=== PATIENT | male | born 1955 | race Caucasian/White ===

== ENCOUNTER → 2017-11-12 | Outpatient (CLI) | payer BC, OTHER ==
--- NOTE | 2017-11-12 16:39 | MRI ---
EXAM DESCRIPTION: Shoulder,Left: MRI. CLINICAL HISTORY: LEFT SHOULDER PAIN COMPARISON: None. TECHNIQUE: Multiplanar, high-field MRI, multiple sequences, without contrast: Left shoulder. FINDINGS: Abnormal signal in the left distal supraspinatus undersurface insertion in the mid fibers. Abnormal longitudinal fluid signal in the anterior aspect of the tendon. Intermediate signal in the posterior tendon fibers. Also abnormal fluid signal in the bursal surface of the anterior fibers. Fluid signal also on the undersurface of the insertion of the infraspinatus tendon distally. Signal in the distal subscapularis tendon. Hypertrophic bone formation on the lesser tuberosity. Normal signal in the teres minor tendon. Fatty signal in the muscles of the supraspinatus more than the infraspinatus tendon. Erosions on the anterior and mid aspect of the greater tuberosity. Heterogeneous marrow signal in the humeral head. Enlarged left AC joint capsule with large marginal spurs directed inferiorly impressing on the supraspinatus musculotendinous junction with flattening of the coracoacromial arch. The capsule is also enlarged in the superior direction. Subchondral cyst in the distal clavicle. No downsloping of the lateral acromion but type 2 curvature laterally. Coracoid ligaments are intact. Effusion in the subcoracoid bursa. Effusion in the glenohumeral joint. Chondromalacia in the glenoid fossa and humeral head. No loose bodies. Increased signal in the mid and posterior aspects of the superior glenoid labrum. Mid-anterior location of the bicipital labral anchor with intermediate signal. Long head biceps tendon within the bicipital groove. IMPRESSION: 1. Almost full-thickness tear of the distal anterior fibers of the supraspinatus tendon with partial-thickness tear of the undersurface insertion, slightly more posterior fibers. Minimal effusion subacromial-subdeltoid bursa. Grade 2 atrophy supraspinatus muscle. 2. Partial-thickness undersurface insertion tear of the infraspinatus tendon and degeneration of the distal tendon. 3. Marked arthrosis AC joint with flattening of the coracoacromial arch and impingement of the musculotendinous junction of the supraspinatus. Also type II curvature of the lateral acromion. Subcoracoid bursitis. 4. Attenuation and partial tear of the posterior aspect of the supraspinatus tendon. Degeneration of the bicipital labral anchor. Joint effusion but no loose bodies. Chondromalacia humeral head but no osteochondral lesion. Electronically signed by: Kennedy Martinez MD 11/12/2017 4:38 PM [employer] [employer]
== END | disposition home or self-care (01) ==
LOC: MRI 09:49
PROVIDERS: ATTEND Family Medicine
DX: M25.519 Pain in unspecified shoulder (principal); R21 Rash and other nonspecific skin eruption; Z12.5 Encounter for screening for malignant neoplasm of prostate

== ENCOUNTER → 2017-11-14 | Outpatient (CLI) | payer BC | END | disposition home or self-care (01) | LOC: GMAL 17:11 | PROVIDERS: ATTEND Family Medicine | DX: Z12.5 Encounter for screening for malignant neoplasm of prostate (principal); R21 Rash and other nonspecific skin eruption ==

== ENCOUNTER → 2017-11-28 | Outpatient (CLI) | payer BC | LOC: LAB.O 10:00 | PROVIDERS: ATTEND Orthopaedic Surgery | DX: Z01.818 Encounter for other preprocedural examination (principal) ==

== ENCOUNTER → 2017-12-03 | Outpatient (CLI) | payer BC | LOC: GMAM 18:31 | PROVIDERS: ATTEND Family Medicine | DX: D63.1 Anemia in chronic kidney disease (principal); R31.21 Asymptomatic microscopic hematuria ==

== ENCOUNTER 2017-12-10 05:50 | Day surgery (SDC) | payer BC ==
--- NOTE | 2017-12-09 10:05 | HP ---
CHIEF COMPLAINT: Left shoulder pain. HISTORY OF PRESENT ILLNESS: José is a 62-year-old male with a history of pain in the left shoulder. It was nontraumatic in onset. He has had rotator cuff repair in the past and this new pain has been going on for several years. He has said it started in the shoulder. He denies any radiation of pain or neurologic symptoms. MRI did reveal a tear in the rotator cuff. Because of the tear in the rotator cuff, we have discussed options. After discussing the risks, benefits and alternatives to that, the patient has given informed consent. PAST SURGICAL HISTORY: 1. Rotator cuff repair. 2. Cardiac stent placement. 3. Lumbar fusion. MEDICATIONS: 1. Aspirin. 2. Celebrex. 3. Hydrocodone. 4. Valsartan. 5. Metoprolol. 6. Clopidogrel. 7. Pravastatin. ALLERGIES: NO KNOWN DRUG ALLERGIES. CODE STATUS: Full code. IMMUNIZATIONS: Up to date. SOCIAL HISTORY: The patient does not drink or use any illicit drugs. He does smoke. FAMILY HISTORY: None pertinent to today's complaint. REVIEW OF SYSTEMS: Negative except as indicated in the History of Present Illness. PHYSICAL EXAMINATION: VITAL SIGNS: Blood pressure 144/65. Pulse 66. Height 5'8". Weight 175. MENTAL STATUS: The patient is awake, alert, and is able to give a good history and participate in the physical. The patient is oriented to person, place and time. SKIN: Normal tone and turgor. MUSCULOSKELETAL: The left upper extremity maintains full range of motion. However, he has pain at about 90 degrees in abduction as well as forward flexion. He has internal rotation to about L3 to L4. He has a negative belly press maneuver. He has pain with internal and external rotation during forward flexion. Sensation is intact. He is very tender in the subacromial and acromioclavicular spaces. IMAGING: MRI does show full thickness tearing at the supraspinatus and partial thickness tearing at the infraspinatus. ASSESSMENT: 1. Rotator cuff syndrome. PLAN: The plan at this point is for rotator cuff repair. We have discussed the risks, benefits, and alternatives to that and the patient has given informed consent. #[id number] [facility]
[2017-12-10] MEDS ORDERED: fentaNYL CITRATE INJ 50 MCG/ML AMP ONE (06:08)
[2017-12-10] MEDS ORDERED: ROCURONIUM BROMIDE 10 MG/ML VIAL ONE (06:09)
[2017-12-10] MEDS ORDERED: LIDOCAINE 2 % GEL 5 ML TUBE TOP ONE (06:09)
[2017-12-10] MEDS ORDERED: SODIUM CHL 0.9% 100ML MINI-BAG 100 ML IVPB ONE (06:15)
[2017-12-10] MEDS: ceFAZolin SODIUM 1 GM VIAL ONE ×2 (09:51→11:10)
[2017-12-10] MEDS ORDERED: LIDOCAINE 1% 10 ML VIAL INJ ONE (10:00)
[2017-12-10] MEDS ORDERED: DEXAMETHASONE INJ 10 MG/ML VIAL IV ONE (10:00)
[2017-12-10] MEDS ORDERED: PROPOFOL 200 MG/20 ML VIAL IV ONE (10:00)
[2017-12-10] MEDS ORDERED: ATROPINE SULFATE INJ (MDV) 0.4 MG/ML 20ML VIAL IV ONE (10:00)
[2017-12-10] MEDS ORDERED: NEOSTIGMINE METHYLSULFATE 1 MG/ML ML IV ONE (10:00)
[2017-12-10] MEDS ORDERED: METOCLOPRAMIDE HCL INJ 10 MG/2 ML VIAL IV ONE (10:00)
[2017-12-10] MEDS ORDERED: ePHEDrine SULF 50 MG/ML IV ONE (10:00)
[2017-12-10] MEDS: LIDOCAINE 1% W/ EPINEPHRINE 20 ML VIAL INJ ONE (10:26)
[2017-12-10] MEDS: SODIUM CHLORIDE 0.9% 1,000 ML BAG IVS ONE (10:26)
[2017-12-10] MEDS: VANCOMYCIN HCL INJ 1,000 MG VIAL IVPB ONE (11:10)
[2017-12-10] MEDS: BUPIVACAINE 0.25% W/EPI 50 ML VIAL INJ ONE (11:28)
[2017-12-10] MEDS: LACTATED RINGERS 1,000 ML ONE (12:31)
[2017-12-10 13:38] VITALS: BP 133/49; TEMP 98; O2SAT 95
--- NOTE | 2017-12-11 11:00 | OP ---
DATE OF PROCEDURE: 12/10/17 PREOPERATIVE DIAGNOSIS: 1. Left rotator cuff tear. POSTOPERATIVE DIAGNOSIS: 1. Left rotator cuff tear. PROCEDURE: 1. Rotator cuff repair. SURGEON: Frank Rosenthal MD. LEAD CARPENTER: Kennedy Watson CST, SA-C. ANESTHESIA: General. COMPLICATIONS: None. FINDINGS: Rotator cuff tear measuring approximately 1 to 1.5 cm of the supraspinatus. INDICATION: Mr. Butler has a history of severe shoulder pain. The shoulder pain has been refractory to conservative measures. Because of the refractory nature of the pain, he has requested operative intervention. After discussing the risks, benefits and alternatives to that, the patient has given informed consent for that. PROCEDURE: The patient was brought to the Operating Room and placed in the supine position. General anesthesia was induced and the patient was transitioned into the beach chair position. The arm and shoulder were sterilely prepped and draped. Following prepping and draping, an incision was made at the lateral border of the acromion. Full thickness skin flaps were developed. Following that, a split was made between the anterior and middle heads of the deltoid. Following the split, a complete bursectomy was performed. The rotator cuff was identified and the tear margin was debrided. Following debridement of the margin, a double-loaded suture anchor was used to reapproximate the supraspinatus in an anatomic position. Once that was performed, the shoulder was taken through a range of motion and the cuff was found to be stable without undue tension. The wound was very thoroughly irrigated and the deltoid was reapproximated. Following that, the acromioclavicular joint was identified and periosteal flap was elevated. The distal 0.5 cm was resected. Care was taken to remove all bony debris and osteophytes. It wound was thoroughly irrigated and the periosteum was reapproximated. The wound again was thoroughly irrigated and reapproximated with Nylon suture. Sterile dressings were placed. The patient was placed in a sling. The patient was awoken from anesthesia and taken to Recovery. POSTOPERATIVE INSTRUCTIONS: He will remain in the sling and be restricted from range of motion. He will followup with us in two days. I have given explicit instructions on appropriate range of motion and lack thereof. #[id number] [facility]
== END 2017-12-10 13:25 | disposition home or self-care (01) ==
LOC: AMB 05:50
PROVIDERS: ATTEND Orthopaedic Surgery
DX: M75.102 Unspecified rotator cuff tear or rupture of left shoulder, not specified as traumatic (principal); M75.42 Impingement syndrome of left shoulder; F17.200 Nicotine dependence, unspecified, uncomplicated; I25.10 Atherosclerotic heart disease of native coronary artery without angina pectoris; I12.9 Hypertensive chronic kidney disease with stage 1 through stage 4 chronic kidney disease, or unspecified chronic kidney disease; N18.9 Chronic kidney disease, unspecified; D64.9 Anemia, unspecified; I25.2 Old myocardial infarction; Z95.5 Presence of coronary angioplasty implant and graft; Z79.82 Long term (current) use of aspirin; Z79.899 Other long term (current) drug therapy
CPT/HCPCS: 01610; 23412; J0690; J1100; J2710; J2765; J3010; J3370; J3490; J7030; J7050; J7120

== ENCOUNTER → 2018-02-19 | Outpatient (CLI) | payer BC | LOC: GMAM 14:14 | PROVIDERS: ATTEND Family Medicine | DX: M70.22 Olecranon bursitis, left elbow (principal) ==

== ENCOUNTER → 2018-03-06 | Outpatient (CLI) | payer BC ==
--- NOTE | 2018-03-06 15:44 | RAD ---
EXAM DESCRIPTION: Elbow,Left 3 Views CLINICAL HISTORY: PAIN IN LEFT ELBOW COMPARISON: None Available. TECHNIQUE: AP, Lateral, and Oblique FINDINGS: Three-view left elbow shows no fracture or dislocation. There is no destructive bone lesion. Small bone island in the proximal radius. Advanced degenerative changes are seen with spurring at the ulnar trochlear joint and at the olecranon. No displacement of distal humeral fat pads to suggest joint effusion. There is no radiopaque foreign body. IMPRESSION: Degenerative changes as described. Electronically signed by: Hiren Linton MD 03/06/2018 3:43 PM CDT
== END ==
LOC: RAD 08:17
PROVIDERS: ATTEND Orthopaedic Surgery
DX: M25.522 Pain in left elbow (principal)

== ENCOUNTER → 2018-04-03 | Outpatient (CLI) | payer BC | LOC: RESP 10:44 | PROVIDERS: ATTEND Orthopaedic Surgery | DX: Z01.818 Encounter for other preprocedural examination (principal) ==

== ENCOUNTER 2018-04-15 05:56 | Day surgery (SDC) | payer BC ==
[~2018-04-15 05:56] MED LIST: SODIUM CHL 0.9% 100ML MINI-BAG 100 ML IVPB ONE
[2018-04-15] MEDS ORDERED: fentaNYL CITRATE INJ 50 MCG/ML AMP ONE (06:28)
[2018-04-15] MEDS ORDERED: LIDOCAINE 2 % GEL 5 ML TUBE TOP ONE (06:29)
[2018-04-15] MEDS ORDERED: MIDAZOLAM INJ 5 MG/5 ML VIAL ONE (06:29)
[2018-04-15] MEDS: LACTATED RINGERS 1,000 ML ONE (06:30)
[2018-04-15] MEDS: ceFAZolin SODIUM 1 GM VIAL ONE ×2 (07:01→07:48)
[2018-04-15] MEDS: BUPIVACAINE 0.25% W/EPI 50 ML VIAL INJ ONE (07:25)
[2018-04-15] MEDS: VANCOMYCIN HCL INJ 1,000 MG VIAL IVPB ONE (07:49)
--- NOTE | 2018-04-15 09:52 | OP ---
DATE OF PROCEDURE: 04/15/18 PREOPERATIVE DIAGNOSIS: 1. Left olecranon bursitis. POSTOPERATIVE DIAGNOSIS: 1. Left olecranon bursitis. PROCEDURE: 1. Bursectomy. SURGEON: Frank Rosenthal MD. DIRECTOR OF INSTITUTIONAL GIVING: Kennedy Watson CST, SA-C. ANESTHESIA: General anesthesia.c COMPLICATIONS: None FINDINGS: Bursitis with no evidence of infection and a large amount of fibrinous tissue. INDICATION: Mr. Butler has a history of swelling which has been intermittent. He has had the fluid from his elbow drained on a couple of occasions. Because of the ongoing presence of repeat accumulation, he has requested operative intervention. After discussing the risks, benefits and alternatives to that inclusive of the possibility of recurrence, he gave informed consent for bursectomy. PROCEDURE: The patient was brought to the Operating Room and placed in supine position. General anesthesia was induced and the patient's arm was sterilely prepped and draped. An incision was made directly overlie the olecranon. Following the incision, blunt dissection was carried down to the olecranon bursa and it was removed piecemeal. The area was probed and examined and to ensure no extension or any the presence of any tract. Once the area had been thoroughly debrided, it was thoroughly irrigated and closure was performed. Sterile dressings were placed. The patient was awoken from anesthesia and taken to Recovery. POSTOPERATIVE INSTRUCTIONS: He will be encouraged to do range of motion of the digits. He will followup with us in two days. #[id number] [facility]
[2018-04-15 10:28] VITALS: BP 132/65; TEMP 97; O2SAT 98
== END 2018-04-15 09:45 | disposition home or self-care (01) ==
LOC: AMB 05:56
PROVIDERS: ATTEND Orthopaedic Surgery
DX: M71.522 Other bursitis, not elsewhere classified, left elbow (principal); I10 Essential (primary) hypertension; I25.10 Atherosclerotic heart disease of native coronary artery without angina pectoris; F17.200 Nicotine dependence, unspecified, uncomplicated; J44.9 Chronic obstructive pulmonary disease, unspecified; R00.1 Bradycardia, unspecified; I25.2 Old myocardial infarction; Z95.5 Presence of coronary angioplasty implant and graft; Z79.02 Long term (current) use of antithrombotics/antiplatelets; Z79.82 Long term (current) use of aspirin; Z79.899 Other long term (current) drug therapy
CPT/HCPCS: 01710; 24105; J0690; J2250; J3010; J3370; J7050; J7120

== ENCOUNTER → 2019-08-18 | Outpatient (CLI) | payer BC ==
--- NOTE | 2019-08-18 13:31 | CT ---
EXAM DESCRIPTION: Chest w/Contrast CLINICAL HISTORY: 64 years, Male, SOLITARY PULMONARY NODULE COMPARISON: None TECHNIQUE: Thin-section noncontrast axial CT images are obtained according to our protocol. Reconstructed MPR images are created and reviewed as well. FINDINGS: Lungs: Consolidation of the lateral segment right middle lobe is seen. The lumen of the bronchus appears opacified or occluded (axial image 72, series 4 and coronal images 66 and 67, series 602). Correlate with bronchoscopic findings. No discernible hilar mass or adenopathy. Findings are consistent with pneumonia. Follow-up after therapy to ensure complete clearance. No worrisome peripheral pulmonary mass or nodule. Tiny granuloma in the left apex measures 3.5 mm. Two additional tiny adjacent 1 mm nodules consistent with granulomas. No imaging follow-up is recommended for these findings. Moderate centrilobular emphysematous changes in the upper lobes bilaterally. Mediastinum: Lymph nodes are normal in size. Mildly prominent right paraesophageal node near the thoracic inlet measures 7 mm short axis dimension. Subcarinal node measures 7.5 mm short axis dimension. Other nodes are smaller. Normal vascular contours. Heart size is normal with no pericardial effusion. Chest wall/axilla: No mass or adenopathy. Lower neck/supraclavicular: No mass or adenopathy. Normal thyroid gland. Upper abdomen: Unremarkable upper abdominal viscera. Coronal and sagittal reformatted images confirm the findings. IMPRESSION: Consolidation of the lateral segment right middle lobe with approximately opacified or occluded segmental bronchus. See above. Few incidental granulomas in the left apex. Moderate centrilobular emphysematous changes in the upper lobes. This exam was performed according to our departmental dose-optimization program, which includes automated exposure control, adjustment of the mA and/or kV according to patient size and/or use of iterative reconstruction technique. Total DLP equals 317.07 mGycm. Electronically signed by: Hiren Linton MD 08/18/2019 1:29 PM CDT
== END ==
LOC: CT 12:15
PROVIDERS: ATTEND Physician Assistant
DX: R91.1 Solitary pulmonary nodule (principal); R91.8 Other nonspecific abnormal finding of lung field; J43.9 Emphysema, unspecified; R07.82 Intercostal pain

== ENCOUNTER → 2019-11-19 | Outpatient (CLI) | payer BC ==
--- NOTE | 2019-11-19 13:12 | CT ---
EXAM DESCRIPTION: Chest w/o Contrast CLINICAL HISTORY: 64 years Male, OTHER DISORDERS OF LUNG TECHNIQUE: This exam was performed according to our departmental dose-optimization program, which includes automated exposure control, adjustment of the mA and/or kV according to patient size and/or use of iterative reconstruction technique. COMPARISON: 08/18/2019 FINDINGS: The thyroid gland is unremarkable. No axillary adenopathy. Atherosclerotic plaque in the normal caliber thoracic aorta. Coronary artery calcifications. No pericardial effusion. No evidence of acute process in the visualized upper abdomen. Cardiomegaly. No mediastinal adenopathy. Centrilobular emphysema. No pneumothorax. No pleural effusion. Small scattered calcified granulomas. No new pulmonary nodule. Improved although some persistent right middle lobe consolidative airspace disease. The right middle lobe segmental bronchus is persistently occluded. No acute or suspicious osseous abnormality. Scattered degenerative changes present. IMPRESSION: Improved although persistent consolidative right middle lobe airspace disease which may reflect resolving pneumonia. Recommend repeat chest CT in three months. Electronically signed by: Jay Betts MD 11/19/2019 1:[address] [facility]
== END ==
LOC: CT 09:50
PROVIDERS: ATTEND Internal Medicine
DX: J98.4 Other disorders of lung (principal)

== ENCOUNTER → 2020-07-05 | Outpatient (CLI) | payer BC, MEDICARE ==
--- NOTE | 2020-07-05 15:46 | MRI ---
Study: MRI of the Right Shoulder. Indication: PAIN IN RIGHT SHOULDER Technique: Multiplanar, multi sequence MRI of the right shoulder was obtained without intravenous contrast. Comparison: None Findings: Severe AC joint osteoarthritis. Type II acromion with mild lateral downsloping. Trace subacromial/subdeltoid bursal fluid. High-grade supraspinatus and infraspinatus tendinosis with irregular intermediate to high grade interstitial tearing throughout the insertional and critical zone fibers of both tendons. Changes most pronounced at the anterior two thirds supraspinatus tendon insertion as well as the anterior two thirds infraspinatus critical zone. Mild ganglion formation tracking along the infraspinatus myotendinous junction. No full-thickness tear or tendon retraction. High grade subscapularis tendinosis with scattered interstitial fissuring. Mild atrophy and grade 1 fatty infiltration rotator cuff musculature. Long head biceps tendinosis with partial medial subluxation onto the lesser tuberosity. No rupture. Circumferential labral truncation and degeneration. Mild glenohumeral joint osteoarthritis. Tiny joint effusion. Thickening and edema inferior glenohumeral ligament which can be seen with adhesive capsulitis. Impression: High-grade supraspinatus and infraspinatus tendinosis with irregular intermediate to high grade interstitial tearing throughout both tendons. High-grade subscapularis tendinosis with scattered interstitial fissuring. Mild atrophy and grade 1 fatty infiltration rotator cuff musculature. Long head biceps tendinosis with partial medial subluxation. Circumferential labral truncation and degeneration. Mild glenohumeral joint osteoarthritis. Adhesive capsulitis. Severe AC joint osteoarthritis. Electronically signed by: Kleber Hawkins MD 07/05/2020 3:44 PM CDT
== END ==
LOC: MRI 08:55
PROVIDERS: ATTEND Family Medicine
DX: M75.81 Other shoulder lesions, right shoulder (principal); M75.111 Incomplete rotator cuff tear or rupture of right shoulder, not specified as traumatic; M19.011 Primary osteoarthritis, right shoulder; M75.21 Bicipital tendinitis, right shoulder; S43.081A Other subluxation of right shoulder joint, initial encounter; M75.01 Adhesive capsulitis of right shoulder; M62.521 Muscle wasting and atrophy, not elsewhere classified, right upper arm; M62.9 Disorder of muscle, unspecified

== ENCOUNTER → 2020-07-13 | Outpatient (CLI) | payer MEDICARE ==
--- NOTE | 2020-07-13 16:07 | CT ---
EXAM DESCRIPTION: Chest w/o Contrast CLINICAL HISTORY: 65 years, Male, OTHER NONSPECIFIC ABNORMAL FINDING OF LUNG FLUID COMPARISON: Previous CT chest November 19, [address] chest August 18, 2019 TECHNIQUE: Thin-section noncontrast axial CT images are obtained according to our protocol. Reconstructed MPR images are created and reviewed as well. FINDINGS: Lungs: Focal consolidating infiltrate is seen in the right lung extending peripherally from the right pulmonary hilum anterior to the major fissure and below the minor fissure (lateral segment right middle lobe). Air bronchograms are seen in the area. The area of abnormality measures approximately 5.4 x 1.7 cm compared to August 18, 2019 measurement of 6.5 x 4 cm area in the present findings are markedly improved compared to the earliest exam. More recent chest CT from November 19, 2019 showed similar lung density to the present finding with a measurement of approximately 5.6 x 1.5 cm. This would indicate that the findings are stable since the most recent exam. Extensive centrilobular emphysematous changes in the upper lobes. Mild subpleural fibrotic changes in the anterior left upper lobe. Mediastinum: Lymph nodes are normal in size. Normal vascular contours. Heart size is large with no pericardial effusion. Moderate coronary calcification. Chest wall/axilla: No mass or adenopathy. Lower neck/supraclavicular: No mass or adenopathy. Normal thyroid gland. Upper abdomen: Extensive upper abdominal vascular calcifications. Otherwise unremarkable upper abdominal viscera. Comparing coronal reformatted images to previous study in November 2019, loss of volume of the right middle lobe is noted. The wedgelike density could be residual scarring after treatment for lung cancer. Wedgelike density as measured on the coronal images is 3.7 x 1.4 cm compared to 4.2 x 1.4 cm on previous study. No focal area of increasing density or increasing roundness or masslike appearance to suggest recurrent or increasing neoplasm in this area. Sagittal reformatted images show intact T-spine with multilevel discogenic loss of height and spurring. Intact sternum. No bony destructive lesion. IMPRESSION: Triangular lung density in the right middle lobe with loss of volume appears stable compared to most recent exam November 19, 2019. See above. This exam was performed according to our departmental dose-optimization program, which includes automated exposure control, adjustment of the mA and/or kV according to patient size and/or use of iterative reconstruction technique. Total DLP equals 512.63 mGycm. Electronically signed by: Hiren Linton MD 07/13/2020 4:06 PM CDT
== END ==
LOC: CT 08:52
PROVIDERS: ATTEND Family Medicine
DX: R91.8 Other nonspecific abnormal finding of lung field (principal)